=== PATIENT | female | born 1980 | race Two or more races ===

== ENCOUNTER 2018-12-25 12:11 | Day surgery (SDC) | payer OTHER ==
[2018-12-24 15:37] VITALS: BMI 21.9
[2018-12-25 13:26] VITALS: TEMP 98.4
[2018-12-25 14:10] VITALS: BP 116/60; PULSE 73
[2018-12-27 08:06] LABS: SERUM IRON SATURATION 6 % (15-55); TOTAL IRON BINDING CAPACITY 409 ug/dL (250-450); UIBC 383 ug/dL (131-425)
--- NOTE | 2018-12-28 11:08 | PATH ---
Surgical Pathology Report Patient Name: JULES WILL [facility]. Rec. #: [id number] /Age/Gender: 1980 (Age: 38) / F Account: [id number] Location: U-ENDOSCOPY Taken: 12/25/2018 Received: 12/26/2018 Reported: 12/28/2018 Physicians: Nic Samuels D.O. Specimen(s) Received A: DUODENUM, 2ND PORTION AND BULB BIOPSY B: PYLORUS BIOPSY C: BODY AND ANGULARIS BIOPSY D: GE JUNCTION BIOPSY E: PROXIMAL ESOPHAGUS, POLYP, BIOPSY Clinical History Abdominal pain Postoperative diagnosis: Gastritis, esophageal polyp Final Diagnosis A. DUODENUM, SECOND PORTION AND BULB, BIOPSY: DUODENAL MUCOSA WITH MILD CHRONIC DUODENITIS AND MILD ANDREW'S GLAND HYPERPLASIA. B. PYLORUS, BIOPSY: GASTRIC MUCOSA WITH MODERATE CHRONIC ACTIVE GASTRITIS AND INTESTINAL METAPLASIA. IMMUNOHISTOCHEMICAL STAIN FOR H. PYLORI IS POSITIVE (RARE). C. ANGULARIS AND BODY, BIOPSY: GASTRIC MUCOSA WITH MILD CHRONIC GASTRITIS. IMMUNOHISTOCHEMICAL STAIN FOR H. PYLORI IS POSITIVE (RARE). D. GE JUNCTION, BIOPSY: GASTRIC CARDIAC TYPE MUCOSA WITH MODERATE CHRONIC GASTRITIS. IMMUNOHISTOCHEMICAL STAIN FOR H. PYLORI IS NEGATIVE. NO SQUAMOUS MUCOSA, INTESTINAL METAPLASIA, OR DYSPLASIA IDENTIFIED. E. PROXIMAL ESOPHAGEAL, POLYP, BIOPSY: SQUAMOUS PAPILLOMA. Electronically Signed Cathy Sawant M.D. Gross Description A. Received in formalin, labeled "second portion and bulb of duodenum biopsy" are 5 wen, irregular portions of soft tissue ranging from 0.1-0.4 cm. in greatest dimension. The specimens are submitted in toto in one cassette. B. Received in formalin, labeled "pylorus biopsy" is a wen, irregular portion of soft tissue measuring 0.3 cm. in greatest dimension. The specimen is submitted in toto in one cassette. C. Received in formalin, labeled "angularis and body biopsy" are 4 wen, irregular portions of soft tissue ranging from 0.1-0.5 cm. in greatest dimension. The specimens are submitted in toto in one cassette. D. Received in formalin, labeled "GE junction biopsy" is a wen, irregular portion of soft tissue measuring 0.4 cm. in greatest dimension. The specimen is submitted in toto in one cassette. E. Received in formalin, labeled "proximal esophageal polyp biopsy" is a wen, irregular portion of soft tissue measuring 0.2 cm. in greatest dimension. The specimen is submitted in toto in one cassette. 12/26/2018 [facility]12/26/2018
== END 2018-12-25 14:30 | disposition home or self-care (01) ==
LOC: JASU-ENDO 12:11
PROVIDERS: ATTEND Internal Medicine Gastroenterology
PROC: 0DB68ZX Excision of Stomach, Via Natural or Artificial Opening Endoscopic, Diagnostic (ICD-10-PCS; 2018-12-25)
PROC: 0DB18ZX Excision of Upper Esophagus, Via Natural or Artificial Opening Endoscopic, Diagnostic (ICD-10-PCS; 2018-12-25)
PROC: 0DB48ZX Excision of Esophagogastric Junction, Via Natural or Artificial Opening Endoscopic, Diagnostic (ICD-10-PCS; 2018-12-25)
PROC: 0DB98ZX Excision of Duodenum, Via Natural or Artificial Opening Endoscopic, Diagnostic (ICD-10-PCS; principal; 2018-12-25 13:00)
DX: K22.8 Other specified diseases of esophagus (principal); K29.80 Duodenitis without bleeding; K29.50 Unspecified chronic gastritis without bleeding; B96.81 Helicobacter pylori [H. pylori] as the cause of diseases classified elsewhere
CPT/HCPCS: 36415; 82728; 83540; 83550; 84703; 88305-TC; 88342-TC

== ENCOUNTER 2020-07-09 05:18 | Day surgery (SDC) | payer OTHER ==
[2020-07-07 14:04] VITALS: BMI 21.2
[2020-07-09 09:32] VITALS: TEMP 98.2
[2020-07-09 10:40] VITALS: BP 102/53; PULSE 66
--- NOTE | 2020-07-10 13:36 | PATH ---
Surgical Pathology Report Patient Name: JULES WILL Med. Rec. #: [id number] /Age/Gender: 1980 (Age: 40) / F Account: [id number] Location: [facility] SURGICAL Taken: 07/09/2020 Received: 07/09/2020 Reported: 07/10/2020 Physicians: Nic Samuels D.O. Specimen(s) Received BODY OF STOMACH Clinical History History of aphthous ulcers Postoperative diagnosis: Gastritis Final Diagnosis BODY OF STOMACH, BIOPSY: GASTRIC MUCOSA WITH CHRONIC GASTRITIS. IMMUNOSTAIN FOR H. PYLORI IS NEGATIVE. NEGATIVE FOR INTESTINAL METAPLASIA. Electronically Signed Greg Gallagher M.D. Gross Description Received in formalin, labeled "body of stomach biopsy" are 3 wen, irregular portions of soft tissue ranging from 0.1-0.5 cm. in greatest dimension. The specimens are submitted in toto in one cassette. /07/09/2020 [place]/07/09/2020
== END 2020-07-09 10:20 | disposition home or self-care (01) ==
LOC: JASU-SURG 05:18
PROVIDERS: ATTEND Internal Medicine Gastroenterology
PROC: 0DB68ZX Excision of Stomach, Via Natural or Artificial Opening Endoscopic, Diagnostic (ICD-10-PCS; principal; 2020-07-09 09:00)
DX: K29.50 Unspecified chronic gastritis without bleeding (principal); R13.10 Dysphagia, unspecified
CPT/HCPCS: 81025; 88305-TC; 88342-TC